=== PATIENT | male | born 1960 | race Caucasian/White ===

== ENCOUNTER → 2020-06-22 09:41 | Outpatient (CLI) | payer OTHER, SELFPAY ==
--- NOTE | 2020-06-22 09:47 | RAD_ITS ---
HISTORY: sharp pain left posterior ribs EXAMINATION/TECHNIQUE: XR Spine Thoracic 3 Views: COMPARISON: None FINDINGS: Minor thoracic scoliosis. Thoracic vertebra are normal in height. No fracture or acute osseous abnormality. No suspicious bony lesion. Mild anterolateral endplate spurring of the lower dorsal spine and upper lumbar spine. The posterior elements are intact. Pedicles are preserved. Atherosclerotic thoracic aorta. RAD/Thoracic Spine 3 Views IMPRESSION: 1. No fracture or acute osseous abnormality. 2. Mild degenerative endplate spurring. at [id number] Reported and signed by: Jemal Guerrero MD Electronically Signed: Jemal Guerrero, at 6:02 EST Tel , Service support ,
== END ==
PROVIDERS: PCP Nurse Practitioner Family; Referring Provider Chiropractor Orthopedic; Visit Provider Chiropractor Orthopedic
DX: R07.81 Pleurodynia (principal)
CPT/HCPCS: 72072

== ENCOUNTER 2021-07-22 10:25 | Emergency (ER) | payer OTHER, SELFPAY ==
[2021-07-22 10:26] VITALS: BP 155/98; PULSE 77; RESP 16; TEMP 36.6; O2SAT 98; BMI 25.5
--- NOTE | 2021-07-22 11:32 | EKG12_ITS ---
Test Reason : CP Blood Pressure : / mmHG Vent. Rate : 076 BPM Atrial Rate : 076 BPM P-R Int : 126 ms QRS Dur : 092 ms QT Int : 380 ms P-R-T Axes : 072 081 180 degrees QTc Int : 427 ms Normal sinus rhythm Nonspecific ST and T wave abnormality Abnormal ECG Confirmed by AMITA PARIS, MICHELLE ([id number]), field map editor KAREY HENRY ([id number]) on 07/23/2021 1:22:48 PM Referred By: LEANDRA Confirmed By:MICHELLE LEVI MD
--- NOTE | 2021-07-22 11:32 | RAD_ITS ---
STUDY: X-RAY CHEST REASON FOR EXAM: Male, 61 years old. Chest pain TECHNIQUE: Single AP portable view of the chest. COMPARISON: Comparison is made with prior study of 06/22/2020. FINDINGS: EKG lines are seen. There is hyperinflation of the lungs consistent with chronic obstructive lung disease (COPD). Scattered calcified granulomas. There is no demonstrated pleural abnormality. Normal size heart. Normal mediastinum and gary. Normal visualized pulmonary arteries. There is atherosclerotic calcification of the aortic arch with tortuosity. Normal visualized thoracic spine. Normal visualized ribs, clavicles, and shoulders. There is no demonstrated abnormality of the visualized soft tissue structures of the upper abdomen. RAD/Chest 1 View (Portable) IMPRESSION: Hyperinflation. No acute abnormality is seen. Electronically Signed: Martin Medrano MD at 11:55 EST , Service support ,
--- NOTE | 2021-07-22 11:33 | EDS_ITS ---
HPI History of Present Illness Chief Complaint: Chest Pain Informant: patient Onset/Context/Timing Onset: Weeks (1) Activity at onset: gradual Timing: Continuous Quality: Positive for Pressure Location: Left Chest Worsened By: - (Exposure to cold air) Relieved By: Nothing Associated Symptoms: Positive for Dyspnea; Negative for Nausea, Vomiting, Diaphoresis, Cough, Fever, Lightheadedness, Acid Reflux and Palpitations Narrative Narrative: Patient presents with chest pain that has been constant for the past week. Patient states it starts in his left axillary area and radiates into his left chest. Patient describes as a pressure. Patient states the pain is been constant but waxing and waning. Patient states it is worse with exposure to cold air. Patient admits to some shortness of breath. Patient denies any cough or fever. Patient denies any nausea or vomiting. Patient denies any diaphoresis. CVD Risk Factors: Positive for Hypertension, Hypercholesterolemia and Smoking; Negative for Diabetes and Family History 1' </=55 PE Risk Factors: Negative for Recent Travel/Surgery, Recent Immobilization, Prior DVT or PE and Cancer [facility] Medical History High blood cholesterol Hypertension Home Medications aspirin [Aspir-81] 81 mg PO DAILY 07/22/21 [History Last Taken Unknown] atorvastatin 40 mg PO QHS 07/22/21 [History Last Taken Unknown] losartan 100 mg PO DAILY 07/22/21 [History Last Taken Unknown] Allergy/AdvReac Type Severity Reaction Status Date / Time No Known Allergies Allergy Verified 07/22/21 10:57 Social History Smoking Status: Current every day smoker tobacco type: cigarettes ROS ROS ED Constitutional Constitutional ED: Denies chills or fever(s) Eyes Eyes: Denies blurry vision or change in vision ENT ENT ED: Reports rhinorrhea; Denies sore throat Cardiovascular Cardiovascular: Reports chest pain and palpitations Respiratory/Chest Respiratory/Chest: Reports dyspnea; Denies cough Gastrointestinal Gastrointestinal: Reports nausea; Denies abdominal pain or vomiting Genitourinary Genitourinary ED: Denies dysuria or hematuria Musculoskeletal Musculoskeletal: Reports back pain; Denies neck pain Integumentary Denies abscess or rash Neurologic Neurologic: Denies headache(s) or weakness Allergic/Immunologic Allergic/Immunologic ED: Denies mouth swelling or urticaria EXAM Physical Exam Const Vital Signs: 07/22/21 10:26 07/22/21 10:54 07/22/21 11:53 Temperature 97.8 F Temperature Source Temporal Pulse Rate 77 Respiratory Rate 16 Respiratory Effort Normal Non-Labored Respiratory Pattern Normal Blood Pressure 155/98 H Blood Pressure Mean 117 Pulse Ox 98 97 Oxygen Delivery Method Room Air Room Air 07/22/21 12:45 Temperature Temperature Source Pulse Rate 72 Respiratory Rate 19 H Respiratory Effort Respiratory Pattern Blood Pressure 155/90 H Blood Pressure Mean 111 Pulse Ox 97 Oxygen Delivery Method Room Air Positive well nourished and well developed General Appearance ED: well developed HEENT normocephalic and atraumatic Eyes PERRL and EOMs intact bilaterally Neck supple and no JVD Chest Wall palpation of chest normal Resp normal respiratory effort and clear to auscultation bilaterally Effort and Inspection: Negative for respiratory distress Cardio regular rate, regular rhythm and no murmurs GI normal to inspection, nondistended, normoactive bowel sounds, soft to palpation, non-tender and non-distended Extremity normal to inspection General Extremety ED: Negative for edema or tenderness General Extremity: Negative for edema Neuro oriented x3, CN's II-XII intact bilaterally and no sensory deficits noted Sensorium / Orientation: awake and alert Motor Exam: strength 5/5 throughout Psych mental status grossly normal Heart Score History: Slightly/Non-Suspicious ECG: Nonspecific Repolarization Age: >45 - <65 years Risk Factors: 1 or 2 Risk Factors Troponin: </= Normal Limit Score: 3 MDM MDM MDM Narrative Medical decision making narrative: Patient was given aspirin here. EKG was obtained. On my interpretation, shows normal sinus rhythm with a rate of 76. OK interval, QRS interval, and QTc intervals were all within normal limits. There are nonspecific ST-T wave changes in the inferior and lateral leads. There are no prior EKGs available for comparison. Portable 1 view chest x-ray was obtained. On my interpretation, lung swan are clear. There is normal cardiac silhouette. Bony thorax is normal. There is no acute process noted. Radiologist also interpreted the x-ray and agrees. CBC and basic metabolic profile were obtained were within normal limits. High-sensitivity troponin was normal. Patient was advised of his findings. Patient has a HEART score of 3. Patient was advised that this is low risk for acute cardiac event. Patient was instructed to follow-up with his primary care physician in 5 to 7 days for further evaluation. Patient was advised that this may be some inflammation in his chest. Patient was instructed take ibuprofen as needed. Patient understood and was agreeable with the plan. All questions were answered. Lab Data Attestation: I reviewed the patient's lab results. Labs: Laboratory Results - last 24 hr 07/22/21 07/22/21 11:00 11:00 WBC 6.8 RBC 4.37 L Hgb 14.0 Hct 42.6 MCV 97.5 H MCH 32.0 MCHC 32.9 RDW Std Deviation 47.1 H RDW Coeff of Jillian 13.0 Plt Count 266 MPV 10.2 Immature Gran % (Auto) 0.400 Neut % (Auto) 63.4 Lymph % (Auto) 25.5 [place] % (Auto) 8.8 Eos % (Auto) 1.3 Baso % (Auto) 0.6 Absolute Neuts (auto) 4.3 Absolute Lymphs (auto) 1.73 Nucleated RBC % 0 Sodium 140 Potassium 4.1 Chloride 108 H Carbon Dioxide 28.0 Anion Gap 4 L BUN 16 Creatinine 1.08 Estim Creat Clear Calc 68.85 Est GFR (MDRD) Af Amer 90 Est GFR (MDRD) Non-Af 74 BUN/Creatinine Ratio 14.8 Glucose 75 Calcium 9.3 Troponin I High Sens 8 Radiography Chest X-Ray - ED: 1 View, Read by ED Physician, Read by Radiologist and Normal Diagnostic Testing: Clinical Impression(s) from Imaging Studies Chest X-Ray 07/22/21 11:32 IMPRESSION: Hyperinflation. No acute abnormality is seen. Electronically Signed: Martin Medrano MD at 11:55 EST , Service support , Discharge Plan Triage Chief Complaint: Chest Pain ED Provider: Jasiel Grajeda Dx/Rx/DC Orders Clinical Impression: Chest pain Instructions: ED Chest Pain, Uncertain Cause Prescriptions: No Action atorvastatin 40 mg Tablet 40 mg PO QHS RF: 0 aspirin [Aspir-81] 81 mg Tablet,Delayed Release (Dr/Ec) 81 mg PO DAILY RF: 0 losartan 100 mg Tablet 100 mg PO DAILY RF: 0 Primary Care Provider: Dez Victor Referrals: Dez Victor MD [Primary Care Provider] - 3-5 Days Disposition Disposition: Home, Self Care
[2021-07-22 11:44] LABS: Absolute Lymphocyte Count 1.73 X10^3/uL (0.83-4.51); Absolute Neutrophil Count 4.3 X10^3/uL (2.0-7.7); Basophil# 0.04 X10^3/uL; Basophil% 0.6 % (0-1); Eosinophil# 0.09 X10^3/uL; Eosinophils% 1.3 % (0-5); Hematocrit 42.6 % (40-54); Lymphocyte # 1.73 X10^3/ul (0.83-4.51); Lymphocyte % 25.5 % (19-41); Mean Corp Hgb Conc 32.9 g/dL (32-36); Mean Corpuscular Volume 97.5 fL (80-94); Mean Platelet Vol. 10.2 fl (6.2-12.0); Monocyte% 8.8 % (0-10); NRBC Flagged by Analyzer 0 % (0-5); Neutrophil % 63.4 % (47-70); Platelet Count 266 K/mm3 (150-450); RBC Distribution Width SD 47.1 fl (35.1-43.9); Red Blood Count 4.37 M/mm3 (4.6-6.2); White Blood Count 6.8 K/mm3 (4.4-11.0)
[2021-07-22] MEDS: Aspirin 81 MG TAB.CHEW 324 MG PO (11:48)
[2021-07-22 11:53] VITALS: O2SAT 97
[2021-07-22 11:55] LABS: Anion Gap 4 (5-15); BUN 16 mg/dL (7-18); BUN/Creat Ratio 14.8 RATIO (10-20); Calcium,Total 9.3 mg/dL (8.5-10.1); Chloride 108 mmol/L (98-107); Creatinine, Serum 1.08 mg/dL (0.70-1.30); EST Glomerular Filtration Rate 74 mL/min (>60); Est Glom Filt Rate - Afr Amer 90 mL/min (>60); Estimated Creatinine Clearance 68.85 ml/min; Glucose 75 mg/dL (74-106); Potassium 4.1 mmol/L (3.5-5.1); Sodium Level 140 mmol/L (136-145); Troponin-I HS 8 pg/mL (3.0-78.0)
[2021-07-22 12:45] VITALS: BP 155/90; PULSE 72; RESP 19; O2SAT 97
--- NOTE | 2021-07-22 12:46 | ED.RN ---
pt at bedside to administer meds. pt refused SL nitro d/t pain only being 1. RN informed patient to let RN know if pain increases.
[2021-07-22 15:01] VITALS: BP 138/82; PULSE 85; RESP 14; O2SAT 97
== END 2021-07-22 15:11 | disposition home or self-care (01) ==
PROVIDERS: Emergency Provider Emergency Medicine; PCP Family Medicine
DX: R07.9 Chest pain, unspecified (principal); I10 Essential (primary) hypertension; E78.00 Pure hypercholesterolemia, unspecified; F17.210 Nicotine dependence, cigarettes, uncomplicated; Z79.82 Long term (current) use of aspirin; Z79.899 Other long term (current) drug therapy
CPT/HCPCS: 71045; 80048; 84484; 85025; 93005; 99285; A4216

== ENCOUNTER 2024-10-10 15:29 | Emergency (ER) | payer OTHER, SELFPAY ==
[2024-10-10 15:29] VITALS: BP 179/85; BP 185/97; PULSE 85; PULSE 91; RESP 18; TEMP 36.6; O2SAT 98; BMI 26.2
--- NOTE | 2024-10-10 15:49 | EKG12_ITS ---
Test Reason : SYNCOPE Blood Pressure : */* mmHG Vent. Rate : 81 BPM Atrial Rate : 81 BPM P-R Int : 124 ms QRS Dur : 92 ms QT Int : 372 ms P-R-T Axes : 83 86 80 degrees QTcB Int : 432 ms Sinus rhythm with Premature atrial complexes with Aberrant conduction Cannot rule out Lateral infarct , age undetermined Abnormal ECG Confirmed by Robson Tran ([id number]), news videotape editor KAREY HENRY ([id number]) on 10/14/2024 10:37:10 AM Referred By: Confirmed By: Robson Tran
--- NOTE | 2024-10-10 15:49 | RAD_ITS ---
PROCEDURE: CHEST PA AND LATERAL REASON FOR EXAM: Syncope. TECHNIQUE: Frontal and lateral views of the chest. COMPARISON: 07/22/2021 FINDINGS: Lungs: Lungs clear of pneumonia and congestion. Pleura: No pleural effusions, thickening, or pneumothorax. Heart: Normal in size and configuration. Mediastinum/Yenni: Unremarkable. Great vessels: Unremarkable. Bones/soft tissues: Unremarkable. Therapeutic device: Cardiac monitoring leads overlie the chest wall. RAD/Chest PA and Lateral IMPRESSION: No active cardiopulmonary disease. Reading Location: [place] [address]
[2024-10-10] MEDS: Aspirin 81 MG TAB.CHEW 324 MG PO (16:17)
[2024-10-10 16:25] LABS: Absolute Lymphocyte Count 1.17 X10^3/uL (0.83-4.51); Absolute Neutrophil Count 3.4 X10^3/uL (2.0-7.7); Basophil# 0.03 X10^3/uL; Basophil% 0.6 % (0-1); Eosinophil# 0.05 X10^3/uL; Eosinophils% 0.9 % (0-5); Hematocrit 41.5 % (40-54); Hemoglobin 13.9 g/dL (13.0-16.5); Lymphocyte # 1.17 X10^3/ul (0.83-4.51); Lymphocyte % 22.2 % (19-41); Mean Corp Hgb Conc 33.5 g/dL (32-36); Mean Corpuscular Hgb 31.2 pg (27.0-32.0); Mean Corpuscular Volume 93.3 fL (80-94); Mean Platelet Vol. 9.7 fl (6.2-12.0); Monocyte# 0.58 X10^3/uL; NRBC Flagged by Analyzer 0 % (0-5); Neutrophil # 3.43 X10^3/uL (2.7-7.7); Neutrophil % 64.9 % (47-70); Platelet Count 255 K/mm3 (150-450); RBC Distribution Width CV 12.7 % (11.6-14.6); RBC Distribution Width SD 43.3 fl (35.1-43.9); Red Blood Count 4.45 M/mm3 (4.6-6.2); White Blood Count 5.3 K/mm3 (4.4-11.0)
--- NOTE | 2024-10-10 16:42 | EDS_ITS ---
HPI History of Present Illness Chief Complaint: Syncope Narrative Narrative: Patient is a 64-year-old male past medical history of hypertension and hypercholesteremia who presents to the emergency department the chief complaint of near syncope. Patient states that he was driving earlier today when his boss stated that he almost passed out and had to grab the wheel. Patient states that he did not eat anything all day and states that he has been feeling slightly under the weather overall for the last several weeks. Patient's denies any recent travel history denies any history of blood clots. Patient denies chest pain or palpitations. [facility] Medical History High blood cholesterol Hypertension Home Medications ?Medication ?Instructions ?Recorded ?Last Taken ?Type aspirin 81 mg tablet,delayed 81 mg PO DAILY 07/22/21 U nknown History release atorvastatin 40 mg tablet 40 mg PO QHS 07/22/21 Unknow n History losartan 100 mg tablet 100 mg PO DAILY 07/22/21 Unk nown History Allergy/AdvReac Type Severity Reaction Status Date / Time No Known Allergies Allergy Verified 07/22/21 10:57 Social History Smoking Status: Current every day smoker tobacco type: cigarettes ROS ROS ED ROS Narrative Constitutional: Patient complains of periodic lightheadedness denies any fevers chills headaches Eyes: Denies change in vision double vision blurry vision Cardiovascular: Denies chest pain Respiratory: Denies coughing wheezing shortness of breath Abdomen: Denies abdominal pain nausea vomiting diarrhea : Denies any urinary symptoms Neurological: Denies numbness, weakness, tingling Musculoskeletal: Denies back pain Skin: Denies rashes or lesions EXAM Physical Exam Narrative Exam Narrative: General: Patient lying in bed rest comfortably did not appear to be acute distress Head: Atraumatic, normocephalic Eyes: PERRL bilaterally, EOMI bilaterally, no conjunctival injection noted Neck: Soft, supple, trachea midline Cardiovascular: Regular rate and rhythm no murmurs gallops rubs noted Respiratory: Clear to auscultation bilaterally no rales rhonchi or wheeze noted Abdomen: Soft, nondistended, no tenderness palpation, Extremities: +5/5 strength noted in the bilateral upper and lower extremities, radial pulses +2/4 in the bilateral upper extremities, no pedal edema no exam Neurological: Patient following commands knew that he was at [facility] year is 2024. NIH of 0 GCS 15. Patient completed finger-nose test bilaterally for any difficulty Skin: Warm, dry, intact no rashes or lesions noted Const Vital Signs: 10/10/24 15:29 10/10/24 15:29 10/10/24 16:19 Temperature 98 F Temperature Source Temporal Pulse Rate 91 85 Pulse Rate [Lying] Pulse Rate [Sitting (for 1 minute prior to obtaining)] Pulse Rate [Standing (for 1 minute prior to obtaining)] Respiratory Rate 18 18 Respiratory Effort Respiratory Pattern Blood Pressure 185/97 H 179/85 H Blood Pressure [Lying] Blood Pressure [Sitting (for 1 minute prior to obtaining)] Blood Pressure [Standing (for 1 minute prior to obtaining)] Blood Pressure Mean 126 116 Blood Pressure Mean [Lying] Blood Pressure Mean [Sitting (for 1 minute prior to obtaining)] Blood Pressure Mean [Standing (for 1 minute prior to obtaining)] Pulse Ox 98 98 Oxygen Delivery Method Room Air Room Air Room Air 10/10/24 16:19 10/10/24 17:29 10/10/24 17:34 Temperature Temperature Source Pulse Rate 74 Pulse Rate [Lying] 70 Pulse Rate [Sitting (for 1 minute prior to obtaining)] 73 Pulse Rate [Standing (for 1 minute prior to obtaining)] 87 Respiratory Rate 24 H Respiratory Effort Normal Respiratory Pattern Normal Blood Pressure 174/90 H Blood Pressure [Lying] 164/84 H Blood Pressure [Sitting (for 1 minute prior to obtaining)] 161/84 H Blood Pressure [Standing (for 1 minute prior to obtaining)] 146/90 H Blood Pressure Mean 118 Blood Pressure Mean [Lying] 110 Blood Pressure Mean [Sitting (for 1 minute prior to obtaining)] 109 Blood Pressure Mean [Standing (for 1 minute prior to obtaining)] 108 Pulse Ox 97 Oxygen Delivery Method Room Air 10/10/24 19:00 Temperature Temperature Source Pulse Rate 71 Pulse Rate [Lying] Pulse Rate [Sitting (for 1 minute prior to obtaining)] Pulse Rate [Standing (for 1 minute prior to obtaining)] Respiratory Rate 36 H Respiratory Effort Respiratory Pattern Blood Pressure 170/94 H Blood Pressure [Lying] Blood Pressure [Sitting (for 1 minute prior to obtaining)] Blood Pressure [Standing (for 1 minute prior to obtaining)] Blood Pressure Mean 119 Blood Pressure Mean [Lying] Blood Pressure Mean [Sitting (for 1 minute prior to obtaining)] Blood Pressure Mean [Standing (for 1 minute prior to obtaining)] Pulse Ox 96 Oxygen Delivery Method Room Air MDM MDM MDM Narrative Medical decision making narrative: Patient is a 64-year-old male who presented to the emergency department the chief complaint of near syncope. On the differential diagnose includes Melamin to dehydration, ACS, PE although feel this less likely as the revised Cadillac score is noted to be low risk. Once workup is obtained reviewed he will be reevaluated. Patient CBC reviewed and was largely unremarkable no evidence leukocytosis white blood count normal 5.3, he was 13.9, plate count normal at 255. Patient sodium normal 130, potassium normal 3.9, creatinine normal 1.1. Patient's troponin was normal at 10 with a delta troponin obtained normal at 10, EKG reviewed by myself which showed sinus rhythm with PACs noted with a rate of 81 bpm. This was compared to an EKG from July 22, 2021 and is largely unchanged. Patient's TSH normal at 1.32, free T4 and T3 were 1.40 and 3.1 respectively. Patient's chest x-ray reviewed by myself and by radiology showed no acute cardiopulmonary processes. I did discuss case with Dr. Tran who states the patient can go home and follow-up with his primary care physician outpatient setting. We will provide him a Holter monitor and he was advised to have a echocardiogram obtained. He has been advised to refrain from driving since he had a near syncopal episode while driving today until he is cleared by his physician. I discussed this plan with the patient and significant other bedside they are agreeable this plan they would like to go home at this point time all question concerns answered he is discharged home in stable condition. Lab Data Labs: Laboratory Results - last 24 hr 10/10/24 10/10/24 16:15 18:27 WBC 5.3 RBC 4.45 L Hgb 13.9 Hct 41.5 MCV 93.3 MCH 31.2 MCHC 33.5 RDW Std Deviation 43.3 RDW Coeff of Jillian 12.7 Plt Count 255 MPV 9.7 Immature Gran % (Auto) 0.400 Neut % (Auto) 64.9 Lymph % (Auto) 22.2 [place] % (Auto) 11.0 H Eos % (Auto) 0.9 Baso % (Auto) 0.6 Absolute Neuts (auto) 3.4 Absolute Lymphs (auto) 1.17 Nucleated RBC % 0 Sodium 138 Potassium 3.9 Chloride Direct 105 Carbon Dioxide 24.4 Anion Gap 9 BUN 12 Creatinine 1.1 Estim Creat Clear Calc 62.83 Est GFR (MDRD) Non-Af 78 BUN/Creatinine Ratio 10.7 Glucose 85 Calcium 9.4 Troponin T High Sens 10 Troponin T Hi Sens 2 Hr 10 Troponin T Hi Sens 2Hr Delta 0 TSH 1.320 Free T4 1.40 Free T3 pg/dL 3.1 Radiography Diagnostic Testing: Clinical Impression(s) from Imaging Studies Chest X-Ray 10/10/24 15:49 IMPRESSION: No active cardiopulmonary disease. Reading Location: [place] [id number] Discharge Plan Triage Chief Complaint: Syncope ED Provider: Roman Avalos Dx/Rx/DC Orders Clinical Impression: Near syncope Prescriptions: No Action atorvastatin 40 mg Tablet 40 mg PO QHS aspirin [Aspir-81] 81 mg Tablet,Delayed Release (Dr/Ec) 81 mg PO DAILY losartan 100 mg Tablet 100 mg PO DAILY Primary Care Provider: Dez Victor Referrals: Dez Victor MD [[facility]] - Activity Restrictions/Additional Instructions: Follow-up with your primary care physician outpatient setting. Wear Holter monitor as educated to here in the emergency department. Have echocardiogram obtained by your primary care physician and if they feel that any abnormalities or any other concerns they can follow-up with cardiology. Do not drive until medically cleared by your physician. Return with worsening symptoms or concerns. Print Language: Amharic Disposition Disposition: Home, Self Care
[2024-10-10 17:00] LABS: Anion Gap 9 (5-15); BUN 12 mg/dL (4-19); BUN/Creat Ratio 10.7 RATIO (10-20); Calcium 9.4 mg/dL (7.6-11.0); Carbon Dioxide 24.4 mmol/L (22.0-29.0); Chloride 105 mmol/L (96-108); Creatinine, Serum 1.1 mg/dL (0.8-1.3); EST Glomerular Filtration Rate 78 (>60); Estimated Creatinine Clearance 62.83 ml/min; Free T3 3.1 pg/mL (2.18-3.98); Glucose 85 mg/dL (70-99); Potassium 3.9 mmol/L (3.3-5.1); Sodium Level 138 mmol/L (133-145); Troponin T High Sensitivity 10 ng/L (<=22)
[2024-10-10 17:29] VITALS: BP 174/90; PULSE 74; RESP 24; O2SAT 97
[2024-10-10 17:34] VITALS: BP 146/90; BP 161/84; BP 164/84; PULSE 70; PULSE 73; PULSE 87
[2024-10-10 18:53] LABS: TROPONIN VARIANCE 2 HR 0; Troponin T High Sens 2 HR 10 ng/L (<=22)
[2024-10-10 19:00] VITALS: BP 170/94; PULSE 71; RESP 36; O2SAT 96
[2024-10-10 19:27] VITALS: O2SAT 98
[2024-10-10 20:50] VITALS: BP 179/84; PULSE 73; RESP 18; TEMP 36.7; O2SAT 96
--- NOTE | 2024-10-10 20:58 | ED.RN ---
This RN educated the patient on the discharge instructions, including that the ED physician states the patient should not drive until the patient's PCP clears the patient to operate vehicles. The patient stated I drive for work, I am driving tomorrow. This RN educated the patient on the potential risks and danger of driving without knowing the reason behind his syncopal episode today.
== END 2024-10-10 20:58 | disposition home or self-care (01) ==
PROVIDERS: Emergency Provider Emergency Medicine; PCP Family Medicine; Visit Provider Emergency Medicine
DX: R55 Syncope and collapse (principal); F17.210 Nicotine dependence, cigarettes, uncomplicated; I10 Essential (primary) hypertension
CPT/HCPCS: 71046; 80048; 84439; 84443; 84481; 84484; 85025; 93005; 99285; A4216

== ENCOUNTER → 2024-10-10 | Outpatient (CLI) | payer OTHER, SELFPAY | END | disposition home or self-care (01) | LOC: CVS 20:50 | PROVIDERS: PCP Family Medicine; Referring Provider Emergency Medicine; Visit Provider Emergency Medicine | DX: R55 Syncope and collapse (principal) | CPT/HCPCS: 93225; 93226 ==

== ENCOUNTER 2024-10-20 19:13 | Inpatient (IN) | payer SELFPAY ==
[2024-10-20] VITALS (10 sets, daily range): BP systolic 128–173; BP diastolic 74–118; PULSE 66–227; RESP 15–23; TEMP 36.3–36.6; O2SAT 94–100; BMI 25.2; BMI 25.3
--- NOTE | 2024-10-20 19:18 | RAD_ITS ---
PROCEDURE: CHEST 1 VIEW (PORTABLE) REASON FOR EXAM: Chest pain TECHNIQUE: Frontal view of the chest. COMPARISON: 10/10/2024 FINDINGS: The heart size is normal. The lungs are clear. RAD/Chest 1 View (Portable) IMPRESSION: NEGATIVE CHEST. Reading Location: [place]
--- NOTE | 2024-10-20 19:18 | EKG12_ITS ---
Test Reason : CP Blood Pressure : */* mmHG Vent. Rate : 189 BPM Atrial Rate : 94 BPM P-R Int : * ms QRS Dur : 130 ms QT Int : 298 ms P-R-T Axes : * 126 -58 degrees QTcB Int : 528 ms Critical Test Result: High HR PROBABLE AFIB WITH ABBERANT CONDUCTION PT HAS WPW Abnormal ECG Confirmed by Robson Tran ([id number]), manuscript editor KEVIN KNIGHT ([id number]) on 10/21/2024 11:06:57 AM Also confirmed by Robson Tran ([id number]), manuscript editor KEIVN KNIGHT ([id number]) on 10/21/2024 11:08:23 AM Referred By: Annia Molina Confirmed By: Robson Tran
--- NOTE | 2024-10-20 19:30 | EKG12_ITS ---
Test Reason : DYSRHYTHMIA Blood Pressure : */* mmHG Vent. Rate : 88 BPM Atrial Rate : 88 BPM P-R Int : 128 ms QRS Dur : 104 ms QT Int : 374 ms P-R-T Axes : 70 73 63 degrees QTcB Int : 452 ms Normal sinus rhythm [id number] Abnormal ECG Reconfirmed by Robson Tran ([id number]), acquisition editor KEVIN KNIGHT ([id number]) on 10/21/2024 11:08:13 AM Referred By: Annia Molina Confirmed By: Robson Tran
[2024-10-20] MEDS: Adenosine 6 MG/2 ML Syringe 12 MG IV (19:31)
[2024-10-20] MEDS: Adenosine 6 MG/2 ML Syringe IV (19:31)
[2024-10-20] MEDS: Magnesium Sulfate 1 GM, 0.9% Normal Saline (Pres. free 8 ML in Syringe 0 EACH IV (19:31)
[2024-10-20] MEDS: fentaNYL 100 MCG/2 ML Ampul 50 MCG IV (19:33)
[2024-10-20] MEDS: Etomidate 20 MG/10 ML Vial 10 MG IV (19:39)
[2024-10-20 19:41] LABS: Absolute Lymphocyte Count 2.51 X10^3/uL (0.83-4.51); Absolute Neutrophil Count 5.7 X10^3/uL (2.0-7.7); Basophil# 0.06 X10^3/uL; Basophil% 0.6 % (0-1); Eosinophil# 0.17 X10^3/uL; Eosinophils% 1.8 % (0-5); Hematocrit 44.1 % (40-54); Hemoglobin 14.8 g/dL (13.0-16.5); Lymphocyte # 2.51 X10^3/ul (0.83-4.51); Lymphocyte % 27.1 % (19-41); Mean Corp Hgb Conc 33.6 g/dL (32-36); Mean Corpuscular Hgb 31.7 pg (27.0-32.0); Mean Corpuscular Volume 94.4 fL (80-94); Mean Platelet Vol. 10.6 fl (6.2-12.0); Monocyte# 0.81 X10^3/uL; Monocyte% 8.7 % (0-10); NRBC Flagged by Analyzer 0 % (0-5); Neutrophil # 5.68 X10^3/uL (2.7-7.7); Neutrophil % 61.5 % (47-70); Platelet Count 280 K/mm3 (150-450); RBC Distribution Width SD 44.7 fl (35.1-43.9); Red Blood Count 4.67 M/mm3 (4.6-6.2); White Blood Count 9.3 K/mm3 (4.4-11.0)
[2024-10-20] MEDS: 0.9% Normal Saline (1000mL) 1,000 ML 999 ML IV (19:48)
--- NOTE | 2024-10-20 19:48 | ED.VIS.CHEST ---
HPI History of Present Illness Chief Complaint: Chest Pain Informant: patient and EMS Narrative Narrative: 64-year-old male presenting by EMS about 45 minutes after he started feeling lightheaded and rapid palpitations all of a sudden, followed by left-sided nonpleuritic chest pressure, all of which has persisted since then. He was seen here in the hospital about 2 weeks ago, he had the same symptoms but they resolved by the time he got to the ER and his EKG was fairly unremarkable. He was discharged, followed up with his doctor, he has an echocardiogram scheduled for this week. This is the first time this has recurred since then and this is only the second time he is ever had the symptoms. States he had a stress test for 5 years ago that was negative, no known history of heart problems prior to this. [facility] Medical History High blood cholesterol Hypertension Home Medications ?Medication ?Instructions ?Recorded ?Last Taken ?Type aspirin 81 mg tablet,delayed 81 mg PO DAILY 07/22/21 Unknown History release atorvastatin 40 mg tablet 40 mg PO QHS 07/22/21 Unknown History losartan 100 mg tablet 100 mg PO DAILY 07/22/21 Unknown History Allergy/AdvReac Type Severity Reaction Status Date / Time No Known Allergies Allergy Verified 10/20/24 19:22 Social History Smoking Status: Current every day smoker tobacco type: cigarettes ROS ROS ED Constitutional Constitutional ED: Denies chills or fever(s) Eyes Eyes: Denies change in vision or diplopia ENT ENT ED: Denies rhinorrhea or sore throat Cardiovascular Cardiovascular: Reports as per HPI, chest pain, lightheadedness, palpitations and racing heartbeat; Denies syncope Respiratory/Chest Respiratory/Chest: Denies cough or dyspnea Gastrointestinal Gastrointestinal: Denies abdominal pain, diarrhea, nausea or vomiting Genitourinary Genitourinary ED: Denies dysuria or hematuria Musculoskeletal Musculoskeletal: Denies back pain or neck pain Integumentary Denies abscess or rash Neurologic Neurologic: Denies headache(s), paresthesias or weakness Psychiatric Psychiatric: Denies anxiety or suicidal thoughts EXAM Physical Exam Const Vital Signs: 10/20/24 19:14 10/20/24 19:14 10/20/24 19:33 Temperature 97.3 F L Temperature Source Oral Pulse Rate 227 H 167 H 221 H Respiratory Rate 17 23 H 20 H Blood Pressure 142/118 H 147/107 H 163/93 H Blood Pressure Mean 126 120 116 Pulse Ox 94 98 97 Oxygen Delivery Method Room Air Room Air Nasal Cannula Oxygen Flow Rate (L/min) 2 10/20/24 19:41 10/20/24 19:42 10/20/24 19:52 Temperature Temperature Source Pulse Rate 108 H 106 H Respiratory Rate 22 H 15 Blood Pressure 163/93 H 142/90 H Blood Pressure Mean 116 107 Pulse Ox 99 94 99 Oxygen Delivery Method Nasal Cannula Nasal Cannula Nasal Cannula Oxygen Flow Rate (L/min) 2 2 2 Positive well nourished and well developed General Appearance ED: well developed and NAD HEENT Reports moist mucous membranes normocephalic and atraumatic Eyes PERRL and EOMs intact bilaterally Neck full ROM and supple Resp normal respiratory effort and clear to auscultation bilaterally Cardio regular rate and regular rhythm Rate: tachycardic Rhythm: abnormal rhythm irregularly irregular Peripheral Pulses: pulses 2+ throughout GI non-tender and non-distended Auscultation: normoactive bowel sounds Palpation: soft Back/Spine no CVA tenderness General Back: other FROM Extremity normal to inspection General Extremety ED: Negative for edema, pulses abnormal or tenderness General Extremity: Negative for edema or pulses abnormal Neuro oriented x3, CN's II-XII intact bilaterally and no sensory deficits noted Sensorium / Orientation: awake and alert Motor Exam: strength 5/5 throughout Skin no rashes or lesions noted and no wounds Heart Score History: Highly Suspicious ECG: Significant ST-Depression Age: >45 - <65 years Risk Factors: >/= 3 Risk Factors or History of CAD Score: 7 MDM MDM MDM Narrative Medical decision making narrative: The patient's rate is often in the 220s, and his rhythm is rapid and irregular, at 1 point it looked like torsades but for the most part it was more consistent with rapid A-fib with aberrency, I tried to give him adenosine after I consented him for possible cardioversion, to see if that made it look like atrial fibrillation, however 2 doses of adenosine did not provide a pause and instead at 1 point made him more tachycardic transiently. He tolerated all of this well. We then obtained an EKG and I compared it to his old one, it is a wide-complex tachycardia and 2 weeks ago he had narrow QRS with a different morphology, more concerning now for ventricular tachycardia. He has been n.p.o. for more than 6 hours, we discussed procedural sedation cardioversion, which we then did see the procedure note. This resulted in successful cardioversion and repeat EKG shows significant ST depressions inferior and septal leads, with [address] elevation in aVL only. I discussed with the STEMI physician Dr. Ventura, he advised that if he has chest pain-free, that it is probably just post cardioversion repolarization and to repeat his EKG in 10 or 15 minutes, no need to treat him as a STEMI if the ST segments improve or resolve. This was done, his third 1 definitely looks better. The ST depressions are improved but still present, the ST elevation is resolved. The patient is asymptomatic and feels much better. Cardiology advised given a beta-lurdes I am adding heparin and amiodarone to that. Discussed with hospitalist for admission. Since he is asymptomatic, amount of dysrhythmia, vital signs normalizing, on no titratable drips, I am comfortable with him going to PCU. Lab Data Attestation: I reviewed the patient's lab results. Labs: Laboratory Results - last 24 hr 10/20/24 19:15 WBC 9.3 RBC 4.67 Hgb 14.8 Hct 44.1 MCV 94.4 H MCH 31.7 MCHC 33.6 RDW Std Deviation 44.7 H RDW Coeff of Jillian 13.0 Plt Count 280 MPV 10.6 Immature Gran % (Auto) 0.300 Neut % (Auto) 61.5 Lymph % (Auto) 27.1 Rincon % (Auto) 8.7 Eos % (Auto) 1.8 Baso % (Auto) 0.6 Absolute Neuts (auto) 5.7 Absolute Lymphs (auto) 2.51 Nucleated RBC % 0 PT 12.8 INR 0.9 APTT 28.7 Sodium 142 Potassium 3.9 Chloride 105 Carbon Dioxide 24.6 Anion Gap 13 BUN 17 Creatinine 1.20 Estim Creat Clear Calc 59.67 Est GFR (MDRD) Non-Af 68 BUN/Creatinine Ratio 14.3 Glucose 89 Calcium 9.9 Magnesium 2.3 H Troponin T High Sens 14 D Radiography Chest X-Ray - ED: 1 View, Read by ED Physician, No Acute Disease and No Infiltrates Diagnostic Testing: Clinical Impression(s) from Imaging Studies Chest X-Ray 10/20/24 19:18 IMPRESSION: NEGATIVE CHEST. [facility] Rhythm Strip Rhythm Strip: wide complex tachycardia Rate: 220 Ectopy: None EKG Initial EKG: Attestation: I personally reviewed and interpreted this EKG as follows: Comments: Wide-complex tachycardia, V. tach versus SVT/A-fib with aberrancy Prior EKG tracings: available for review Prior: Changed Follow-up EKG: Attestation: I personally reviewed and interpreted this EKG as follows: Interpretation: Sinus Rhythm, No Acute Injury Pattern, S-T Elevation and S-T Depression Comments: See above for detailed interpretation. Normal axis. 3rd: Attestation: I personally reviewed and interpreted this EKG as follows: Interpretation: Sinus Rhythm, No Acute Injury Pattern and S-T Depression (Same distribution but improved) Comments: NEDA resolved Management Discussion w/another healthcare provider: Hospitalist and Billposting Supervisor (Cardiology) Critical Care Time Critical Care Time: Yes Critical care time (excluding procedures): 30-74 minutes (42 min, not including procedure time), Including time spent:, Discussing w/Patient &/or Family/Conductor Orchestra, Discussing w/Consultants, Arranging Admission or Transfer and Performing Direct Patient Care at Bedside Discharge Plan Dx/Rx/DC Orders Clinical Impression: Sustained ventricular tachycardia, Chest pain Disposition Disposition: Acute Care Hospital [facility]
[2024-10-20] MEDS: Aspirin 81 MG TAB.CHEW 324 MG PO (19:54)
--- NOTE | 2024-10-20 20:01 | EKG12_ITS ---
Test Reason : RHYTHM CHANGE Blood Pressure : */* mmHG Vent. Rate : 103 BPM Atrial Rate : 103 BPM P-R Int : 130 ms QRS Dur : 102 ms QT Int : 356 ms P-R-T Axes : 70 86 79 degrees QTcB Int : 466 ms Sinus tachycardia Tstvu-[id number] NSSST CHANGES Confirmed by Robson Tran ([id number]), business editor KEVIN KNIGHT ([id number]) on 10/21/2024 11:07:52 AM Referred By: Annia Molina Confirmed By: Robson Tran
[2024-10-20 20:15] LABS: Anion Gap 13 (5-15); BUN 17 mg/dL (4-19); BUN/Creat Ratio 14.3 RATIO (10-20); Calcium,Total 9.9 mg/dL (7.6-11.0); Carbon Dioxide 24.6 mmol/L (21.0-32.0); Chloride 105 mmol/L (98-108); EST Glomerular Filtration Rate 68 (>60); Estimated Creatinine Clearance 59.67 ml/min (50-250); Glucose 89 mg/dL (70-99); Magnesium 2.3 mg/dL (1.5-2.2); Potassium 3.9 mmol/L (3.3-5.1); Sodium Level 142 mmol/L (133-145); Troponin T High Sensitivity 14 ng/L (<=22)
[2024-10-20 20:33] LABS: International Normalized Ratio 0.9; Prothrombin Time (Protime)PT. 12.8 SECONDS (11.7-14.9)
[2024-10-20 20:34] LABS: Partial Thromboplast Time 28.7 Seconds (24.1-36.2)
[2024-10-20] MEDS: Heparin Injection (Vial) 5,000 UNIT/ML VIAL 4000 UNIT IV (20:37)
--- NOTE | 2024-10-20 20:37 | PCM.HP.STD ---
HPI - General General Date of Admission: 10/20/24 Date of Service: 10/20/24 Chief Complaint: Chest pain/racing heart/LH/Dizziness. HPI Narrative The patient is a 64 y/o M w/ PMHx: Nonobstructive CAD (no PCI history), HTN, HLD, Tobacco use who presents to the [facility] ED on 10/20/24 with history of approximately 45 minutes lightheadedness, dizziness, racing heart/palpitations and associated left-sided nonpleuritic chest discomfort with no radiation described as pressure with racing heart and palpitations rated 8 out of 10 it is worse which continued prompting eventual ED evaluation. Patient was in the hospital and evaluated approximate 2 weeks previous with similar symptoms however they resolved an EKG and workup at that time was not marked appearing with planned outpatient Holter monitor assessment and echocardiogram. He notes this is the first recurrence since that time. He had a stress test approximately 5 years previous which was negative at that time otherwise no cardiac history. In the ED upon evaluation given resolution of VT patient noted that chest pressure and palpitations have completely resolved. Workup in the ED included T97.3, heart rate initially 227, BP 142/118, respiratory rate 17, 94% room air with most recent repeat vitals heart rate 106, BP 142/90, respiratory rate 15, 99% on 2 L nasal cannula, CBC with WBC 9.3, hemoglobin 14.8, platelet 280 without marked shift, pending coags upon request evaluation of patient, BMP unremarkable, BUN/creatinine 17/1.20, GFR 68, troponin 14, magnesium 2.3, chest x-ray with no acute cardiopulmonary findings, EKG initial with wide-complex tachycardia, VT versus SVT/A-fib with aberrancy with follow-up EKG with sinus rhythm with no acute evidence of ischemia with ST elevation ST depression with repeat 30 EKG with sinus rhythm again with same distribution but improved from previous. Patient failed adenosine intervention therefore cardioversion was performed unsuccessful. ED discussed case with cardiology service and patient was initiated on amiodarone bolus with drip as well as heparin bolus with drip. In the ED patient was administered round of adenosine with initial 6 mg and follow-up 12 mg IV. Full spectrum of medications administered in the ED included 1 L normal saline, adenosine 6 mg and 12 mg IV, amiodarone bolus and drip, aspirin 324 mg p.o. x 1, etomidate 10 mg IV x 1, fentanyl 50 mcg IV x 1, heparin bolus and drip, magnesium 1 g IV x 1, metoprolol 5 mg IV x 1. [facility] Medical History Hyperlipidemia Tobacco use Hypertension Home Medications ?Medication ?Instructions ?Recorded ?Last Taken ?Type aspirin 81 mg tablet,delayed 81 mg PO DAILY 07/22/21 Unknown History release atorvastatin 40 mg tablet 40 mg PO QHS 07/22/21 Unknown History losartan 100 mg tablet 100 mg PO DAILY 07/22/21 Unknown History amlodipine 5 mg tablet 5 mg PO DAILY 10/20/24 Unknown History Allergy/AdvReac Type Severity Reaction Status Date / Time No Known Allergies Allergy Verified 10/20/24 19:22 Family History Mother Heart disease Hypertension Diabetes Father Heart disease Hypertension Diabetes Surgical History H/O cardiac catheterization Social History household members: spouse Smoking Status: Current every day smoker tobacco type: cigarettes Smoking packs per day: 0.25 Smoking cigarettes per day: 5.0 alcohol intake: never substance use type: does not use ROS ROS Narrative Admission Review of Systems: CONSTITUTIONAL: No weight loss, fever, chills, + weakness or fatigue. HEENT: Eyes: No visual loss, blurred vision, double vision or yellow sclerae. Ears, Nose, Throat: No hearing loss, sneezing, congestion, runny nose or sore throat. SKIN: No rash or itching, lesions, wounds. CARDIOVASCULAR: + Chest pain, heaviness, palpitations. No edema, orthopnea, syncopal events. RESPIRATORY: No shortness of breath, cough or sputum, wheezing, hemoptysis. GASTROINTESTINAL: No anorexia, nausea, vomiting or diarrhea, abdominal pain, melena, BRBPR. GENITOURINARY: No dysuria, frequency, urgency or retention. NEUROLOGICAL: No headache, dizziness, syncope, paralysis, ataxia, numbness or tingling in the extremities, focal weakness, change in bowel or bladder control, seizure. MUSCULOSKELETAL: + muscle, back pain, joint pain or stiffness. HEMATOLOGIC: No anemia, bleeding or bruising. LYMPHATICS: No enlarged nodes. No history of splenectomy. PSYCHIATRIC: No history of depression or anxiety. ENDOCRINOLOGIC: No reports of sweating, cold or heat intolerance. No polyuria or polydipsia. ALLERGIES: No history of asthma, hives, eczema or rhinitis. Vital Signs Vital Signs Vital Signs: 10/20/24 19:14 10/20/24 19:14 10/20/24 19:33 Temperature 97.3 F L Temperature Source Oral Pulse Rate 227 H 167 H 221 H Respiratory Rate 17 23 H 20 H Blood Pressure 142/118 H 147/107 H 163/93 H Blood Pressure Mean 126 120 116 Pulse Ox 94 98 97 Oxygen Delivery Method Room Air Room Air Nasal Cannula Oxygen Flow Rate (L/min) 2 10/20/24 19:41 10/20/24 19:42 10/20/24 19:52 Temperature Temperature Source Pulse Rate 108 H 106 H Respiratory Rate 22 H 15 Blood Pressure 163/93 H 142/90 H Blood Pressure Mean 116 107 Pulse Ox 99 94 99 Oxygen Delivery Method Nasal Cannula Nasal Cannula Nasal Cannula Oxygen Flow Rate (L/min) 2 2 2 Weight Weight: 161 lb 9.581 oz Body Mass Index (BMI) 25.2 Physical Exam Narrative Physical Examination: General: Awake, alert, oriented x 3 and cooperative, seated upright in the ED bed, denies any recurrent chest pressure since cardioversion. Skin: Normal color, normal turgor, no icterus, no cyanosis except occasional stage ecchymoses, abrasion. HEENT: AT/NC, EOMI, PERRLA, MMM, no carotid bruits or JVD noted. Lungs: Mild diminished, greater bases, poor effort, no rales, ronchi or wheezing. Heart: Improved, currently regular rate and rhythm; no gallop, rub audible. Abdomen: Soft, NTTP, ND, mildly overactive BS, no appreciated HSM. Extremities: No cyanosis, clubbing, or edema. Neurological: Patient awake, alert, oriented as noted, cognitive function intact; pupils equally reactive to light and accommodation, cranial nerves grossly normal, moving all 4 extremities, no focal deficits, strength improved, mildly globally decreased. Psychiatric: Affect appears fatigued otherwise normal, no acute evidence of depressive or anxiety feelings. Results Lab / Micro Data 10/20/24 19:15 10/20/24 19:15 Labs: Laboratory Results - last 24 hr 10/20/24 19:15: WBC 9.3, RBC 4.67, Hgb 14.8, Hct 44.1, MCV 94.4 H, MCH 31.7, MCHC 33.6, RDW Std Deviation 44.7 H, RDW Coeff of Jillian 13.0, Plt Count 280, MPV 10.6, Immature Gran % (Auto) 0.300, Neut % (Auto) 61.5, Lymph % (Auto) 27.1, Becker % (Auto) 8.7, Eos % (Auto) 1.8, Baso % (Auto) 0.6, Absolute Neuts (auto) 5.7, Absolute Lymphs (auto) 2.51, Nucleated RBC % 0, PT 12.8, INR 0.9, APTT 28.7, Sodium 142, Potassium 3.9, Chloride 105, Carbon Dioxide 24.6, Anion Gap 13, BUN 17, Creatinine 1.20, Estim Creat Clear Calc 59.67, Est GFR (MDRD) Non-Af 68, BUN/Creatinine Ratio 14.3, Glucose 89, Calcium 9.9, Magnesium 2.3 H, Troponin T High Sens 14 D Rhythm Strip Rhythm Strip: wide complex tachycardia Rate: 220 Ectopy: None Imaging Radiology Impression Chest X-Ray 10/20/24 19:18 IMPRESSION: NEGATIVE CHEST. Reading Location: [facility] Assessment & Plan Assessment/Plan (1) Sustained ventricular tachycardia: (2) Chest pain: PLAN: Plan The patient is a 64 y/o M w/ PMHx: Nonobstructive CAD (no PCI history), HTN, HLD, Tobacco use who presents to the [facility] ED on 10/20/24 with history of approximately 45 minutes lightheadedness, dizziness, racing heart/palpitations and associated left-sided nonpleuritic chest discomfort with no radiation described as pressure with racing heart and palpitations rated 8 out of 10 it is worse which continued prompting eventual ED evaluation. #1. Chest pain with VT with nonobstructive CAD history: Status post adenosine administration without success with eventual cardioversion noted to be successful. Given current stable vital signs, maintained in sinus rhythm on amiodarone drip, Will admit to PCU as stepdown given drips, maintain on telemetry, obtain cardiac enzyme serial set, mag normal level per ED, will obtain TSH, will obtain ECHO, will maintain on amiodarone drip with bolus administered in the ED and continue heparin drip pending Cardiology evaluation, will maintain NPO status after midnight in case of any intervention needs. #2. Hypertension: Continue home regimen including losartan, amlodipine with hold parameters as needed, PRN hydralazine. #3. Hyperlipidemia: Continue home statin regimen. AM FLP. #4. Tobacco Abuse: Encouraged cessation, inpatient consultation per RT, NR if desired. #5. DVT prophylaxis: Heparin drip will be continued as noted. #6. CODE status: Patient does not have healthcare power of leasing machine tender or living will in place but he notes his would be his medical decision-maker if necessary. His brother is also present for discussions. Discussed CODE status at length including difference between FULL code, DNR-CCA and DNR-CC status. Following discussions about the differences in these status, requested Full Code status. Charges/Coding Visit Charges Inpatient E&M: 71988 Init Hosp L3
[2024-10-20] MEDS: Metoprolol Tartrate 5 MG/5 ML Vial IV (20:39)
[2024-10-20] MEDS: Amiodarone 360 MG in Dextrose 5% Viaflo Bag 192.8 ML 33.3 MG CONT INF (20:41)
[2024-10-20] MEDS: HEPARIN/D5w 25,000 UNITS 25,000 UNITS/250 ML IV.SOLN. 9 UNITS CONT INF (20:41)
--- NOTE | 2024-10-20 22:27 | ECHOD_ITS ---
Reason For Study Reason For Study: V-TACH Procedure This was a 2D Doppler, Color Flow transthoracic echocardiogram. Exam performed portable in patient room. Left Ventricle Normal LV size. The estimated ejection fraction is 70 %. No evidence for diastolic dysfunction. No regional wall motion abnormalities noted. Right Ventricle Normal RV size. Normal systolic function. Atria The left and right atria are normal. No doppler evidence for ASD. Mitral Valve There is no mitral valve stenosis. Trivial mitral valve insufficiency. Tricuspid Valve There is no tricuspid stenosis. Mild tricuspid valve insufficiency. Pulmonary artery systolic pressure is 35 mmHg. Aortic Valve Trisinus/trileaflet aortic valve. There is no aortic stenosis. No aortic valve insufficiency. Pulmonic Valve There is no pulmonic valvular stenosis. Trivial pulmonic valve insufficiency. Great Vessels Normal sized aortic root. Pericardium/Pleural No pericardial effusion. MMode/2D Measurements & Calculations LVIDd: 4.2 cm IVSd: 1.2 cm Ao root diam: 2.9 cm LVIDs: 2.7 cm LVPWd: 1.1 cm RVDd: 3.1 cm FS: 35.4 % LAV(MOD-bp): 39.6 ml LVAd ap4: 24.4 cm2 SV(MOD-sp4): 41.9 ml LAV(MOD-bp) Indexed: 21.7 ml/m2 LVLd ap4: 7.7 cm SI(MOD-sp4): 23.0 ml/m2 LAV(MOD-sp2): 39.0 ml EDV(MOD-sp4): 63.9 ml LAV(MOD-sp4): 38.3 ml EDV(sp4-el): 65.5 ml LVAs ap4: 12.7 cm2 LVLs ap4: 6.5 cm ESV(MOD-sp4): 22.0 ml ESV(sp4-el): 21.1 ml EF(MOD-sp4): 65.5 % EF(sp4-el): 67.8 % SV(sp4-el): 44.4 ml LA A4 area: 15.8 cm2 LA dimension(2D): 3.3 cm RA A4 area: 13.4 cm2 TAPSE: 1.9 cm Time Measurements MV dec time: 0.22 sec Doppler Measurements & Calculations MV E max delroy: 91.8 cm/sec Lat Peak E' Delroy: 9.7 cm/sec Med Peak E' Delroy: 10.7 cm/sec MV A max delroy: 81.1 cm/sec E/E' lat: 9.5 E/E' med: 8.6 MV E/A: 1.1 Ao V2 max: 99.8 cm/sec LV V1 max: 91.2 cm/sec PA V2 max: 82.6 cm/sec Ao max P.0 mmHg LV V1 max P.3 mmHg TR max delroy: 264.9 cm/sec TR max P.1 mmHg ECHO/Echo Complete Interpretation Summary The estimated ejection fraction is 70 %. No evidence for diastolic dysfunction. Trivial mitral valve insufficiency. Ordering Physician: Annia Molina Referring Physician: CONTRERAS WILLETT Performed By: Mohini Leone RDCS
[2024-10-20 23:01] LABS: Troponin T High Sens 2 HR 26 ng/L (<=22)
[2024-10-21] VITALS (10 sets, daily range): BP systolic 90–133; BP diastolic 58–75; PULSE 53–69; RESP 15–20; TEMP 36.6–36.7; O2SAT 94–98; BMI 25.3
[2024-10-21 00:04] LABS: Troponin T High Sens 4 HR 29 ng/L (<=22)
[2024-10-21 02:58] LABS: Absolute Neutrophil Count 4.2 X10^3/uL (2.0-7.7); Basophil# 0.05 X10^3/uL; Basophil% 0.6 % (0-1); Eosinophil# 0.23 X10^3/uL; Eosinophils% 2.8 % (0-5); Hematocrit 36.8 % (40-54); Hemoglobin 12.4 g/dL (13.0-16.5); Lymphocyte % 37.1 % (19-41); Mean Corp Hgb Conc 33.7 g/dL (32-36); Mean Corpuscular Hgb 31.6 pg (27.0-32.0); Mean Corpuscular Volume 93.9 fL (80-94); Mean Platelet Vol. 10.1 fl (6.2-12.0); Monocyte# 0.74 X10^3/uL; Monocyte% 8.9 % (0-10); NRBC Flagged by Analyzer 0 % (0-5); Neutrophil # 4.22 X10^3/uL (2.7-7.7); Neutrophil % 50.4 % (47-70); Platelet Count 223 K/mm3 (150-450); RBC Distribution Width CV 13.1 % (11.6-14.6); RBC Distribution Width SD 44.4 fl (35.1-43.9); Red Blood Count 3.92 M/mm3 (4.6-6.2); White Blood Count 8.4 K/mm3 (4.4-11.0)
[2024-10-21] MEDS: Amiodarone 360 MG in Dextrose 5% Viaflo Bag 192.8 ML 16.7 MG CONT INF (03:04)
[2024-10-21 03:22] LABS: ALB/GLOB Ratio 1.3 RATIO (0.9-2.4); AST(SGOT) 16 U/L (<=37); Alanine Aminotransfer ALT/SGPT 10 U/L (<=46); Albumin, Serum 3.4 g/dL (3.4-4.8); Alkaline Phosphatase 95 U/L (40-129); Anion Gap 10 (5-15); BUN 17 mg/dL (4-19); BUN/Creat Ratio 15.7 RATIO (10-20); Calcium,Total 8.8 mg/dL (7.6-11.0); Carbon Dioxide 20.7 mmol/L (21.0-32.0); Chloride 110 mmol/L (98-108); Cholesterol 133 mg/dL (<=200); Creatinine, Serum 1.09 mg/dL (0.70-1.20); EST Glomerular Filtration Rate 77 (>60); Estimated Creatinine Clearance 63.41 ml/min (50-250); Globulin 2.7 g/dL (2.2-4.2); Glucose 88 mg/dL (70-99); High Density Lipoprotein 40 mg/dL; Low Density Lipoprotein Calc. 77 mg/dL; Potassium 3.9 mmol/L (3.3-5.1); Protein, Total 6.1 g/dL (5.9-8.4); Sodium Level 141 mmol/L (133-145); Total Bilirubin 0.35 mg/dL (0.00-1.30); Triglycerides 80 mg/dL; Very Low Density Lipoprotein 16 mg/dL (5-40); cholesterol:hdl ratio screen 3.33
[2024-10-21 03:24] LABS: Partial Thromboplast Time > 200.0 Seconds (24.1-36.2)
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
[2024-10-21] MEDS: 0.9% Saline Lock 10 ML Syringe IV (08:53)
[2024-10-21] MEDS: Losartan Potassium 100 MG Tablet PO (08:53)
[2024-10-21] MEDS: Aspirin E.C. 81 MG Tablet PO (08:54)
[2024-10-21 10:21] LABS: Amphetamine Urine NEGATIVE (<1000 ng/mL); Barbiturate Urine NEGATIVE (< 200 ng/mL); Benzodiazepine Urine NEGATIVE (< 200 ng/mL); Buprenorphine Urine NEGATIVE (< 200 ng/mL); Cocaine Urine NEGATIVE (< 300 ng/mL); Fentanyl, Urine PRESUMPTIVE POSITIVE; Methadone Urine NEGATIVE (< 300 ng/mL); Opiates Urine NEGATIVE (< 300 ng/mL); Oxycodone, Urine NEGATIVE (< 100 ng/mL); PCP Urine NEGATIVE (< 25 ng/mL); THC Urine NEGATIVE (< 50 ng/mL)
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
[2024-10-21 11:41] LABS: Partial Thromboplast Time 28.7 Seconds (24.1-36.2)
== END 2024-10-21 12:00 | disposition short-term general hospital (02) | DRG 310 ==
LOC: ED 20:17 → PCU 10-21 07:02
PROVIDERS: Admitting Provider Family Medicine; Emergency Provider Emergency Medicine; PCP Family Medicine; Referring Provider Family Medicine; Visit Provider Internal Medicine
DX: I45.6 Pre-excitation syndrome (principal); I47.20 Ventricular tachycardia, unspecified; I10 Essential (primary) hypertension; E78.00 Pure hypercholesterolemia, unspecified; F17.210 Nicotine dependence, cigarettes, uncomplicated; I25.10 Atherosclerotic heart disease of native coronary artery without angina pectoris; I48.0 Paroxysmal atrial fibrillation; Z79.82 Long term (current) use of aspirin; Z79.899 Other long term (current) drug therapy
CPT/HCPCS: 36415; 71045; 80048; 80053; 80061; 80307; 83735; 84443; 84484; 85025; 85610; 85730; 92960; 93005; 93306; 99285; A4216; J0153; J3475